=== PATIENT | female | born 1975 | race Caucasian/White ===

== ENCOUNTER 2016-11-02 13:07 | Emergency (ER) | payer MEDICARE, MEDICAID ==
[~2016-11-02] VITALS: Ht 170.2 cm; Wt 70.3 kg
[2016-11-02 14:17] LABS: CALCIUM 9.1 mg/dL (8.5-10.1); CARBON DIOXIDE 22.9 mmol/L (21-32); CHLORIDE SERUM 106 mmol/L (98-107); GFR1 > 60 mL/min; GLUCOSE SERUM 102 mg/dL (74-106); POTASSIUM SERUM 3.4 mmol/L (3.5-5.1); SODIUM SERUM 143 mmol/L (136-145)
[2016-11-02 14:21] LABS: ALBUMIN 4.1 g/dL (3.4-5.0); ALKALINE PHOSPHATASE 81 U/L (46-116); ALT/SGPT 25 U/L (14-59); AST/SGOT 32 U/L (15-37); BILIRUBIN TOTAL 1.3 mg/dL (0.20-1.00); MAGNESIUM 2.1 mg/dL (1.8-2.4); TOTAL PROTEIN, SERUM 7.6 g/dL (6.4-8.2)
[2016-11-02 14:28] LABS: BASOPHIL % 0.2 % (0-2); PLATELET COUNT 227 x10^3mcL (130-400)
[2016-11-02 16:08] LABS: UA SPECIFIC GRAVITY >=1.030 (1.005-1.035); microscopic required? YES; urine erythrocyte NEGATIVE (NEGATIVE)
[2016-11-02 16:18] LABS: AMPHETAMINE QUAL UR NONE DETECTED (NEG <=1000)
[2016-11-02 19:40] VITALS: BP 107/67
== END 2016-11-02 19:40 | disposition short-term general hospital (02) ==
LOC: ED 13:07
PROVIDERS: Emergency Medicine
DX: F25.9 Schizoaffective disorder, unspecified (principal); F31.9 Bipolar disorder, unspecified
CPT/HCPCS: 80307; G0480; J7030; Q0092